=== PATIENT | male | born 1970 | race Caucasian/White ===

== ENCOUNTER 2017-11-25 00:58 | Inpatient (IN) | payer OTHER ==
[~2017-11-25] VITALS: Ht 193 cm; Wt 109.7 kg
[2017-11-25 09:20] VITALS: BP 135/91
--- NOTE | 2017-11-25 09:20 | NUR ---
RECEIVED PT FROM TRANSPORT PERSONNEL, VIA GURNEY, AWAKE AND ALERT AND CAME FROM [facility]. PT WAS ASSISTED TO BED AND MADE COMFORTABLE. SIDE RAILS ARE UP AND BED IN LOW POSITION, SAFETY PRECAUTION ENFORCED. PT HAS AN IV LINE ON THE LEFT AC G.20. INTACT AND ON SALINE LOCK. VITAL SIGNS TAKEN AND IS STABLE. PT VERBALIZED A PAIN RATE OF 5/10. RESPIRATIONS EVEN AND NO OTHER UNTOWARD SIGN NOTED. WILL CONTINUE TO MONITOR PT.
--- NOTE | 2017-11-25 11:43 | NUR ---
PT WAS SEEN BY DR. BANEGAS AND INFORMED PT THAT HE WILL BE REFERRED TO ANOTHER MD WHO WILL DO SURGERY, PT VERBALIZED UNDERSTANDING.
[2017-11-25] MEDS ORDERED: DEXT 5% / NACL 0.45% 1,000 ML IV SCH (11:48)
[2017-11-25] MEDS ORDERED: ACETAMINOPHEN 325 MG TAB PO PRN (11:50)
[2017-11-25] MEDS ORDERED: MORPHINE SULFATE 4 MG/ML SYR IVP PRN (11:50)
[2017-11-25] MEDS ORDERED: ONDANSETRON 4 MG/2 ML VIAL IVP PRN (11:50)
[2017-11-25] MEDS ORDERED: HYDROcodone/APAP 5/325 MG 1 TAB TAB PO PRN (11:50)
[2017-11-25 12:00] VITALS: BP 139/85
--- NOTE | 2017-11-25 12:45 | NUR ---
DR. BURGOS CAME TO THE PT'S ROOM AND SPOKE TO THE PT, PT RESPONDED APPROPRIATELY.
[2017-11-25] MEDS ORDERED: PIPER/TAZO 3.375GM/D5W PREMIX 50 ML IV SCH (13:00)
[2017-11-25 13:47] LABS: BASOPHILS # (AUTO) 0.1 K/uL (0.00-0.22); BASOPHILS % (AUTO) 0.3 % (0.0-2.0); EOSINOPHILS # (AUTO) 0.1 K/uL (0-0.4); EOSINOPHILS % (AUTO) 0.5 % (0.0-4.0); HEMATOCRIT 44.2 % (36-52); HEMOGLOBIN 14.9 g/dL (12.0-18.0); LYMPHOCYTES # (AUTO) 1.7 K/uL (2.0-11.5); LYMPHOCYTES % (AUTO) 8.7 % (20.5-51.1); MEAN CORPUSCULAR HEMOGLOBIN 30 pg (27-31); MEAN CORPUSCULAR HGB CONC 34 g/dL (33-37); MEAN CORPUSCULAR VOLUME 88.1 fL (80-94); MONOCYTES # (AUTO) 1.5 K/uL (0.8-1.0); MONOCYTES % (AUTO) 7.5 % (1.7-9.3); NEUTROPHILS # (AUTO) 16.1 K/uL (1.8-7.7); PLATELET COUNT (AUTO) 226 K/uL (140-450); RED BLOOD CELL COUNT(AUTO) 5.02 MIL/uL (4.20-6.10); RED CELL DISTRIBUTION WIDTH 13.9 % (11.6-13.7); WHITE BLOOD COUNT (AUTO) 19.4 K/uL (4.8-10.8)
[2017-11-25] MEDS ORDERED: OXcarbazepine 150 MG TAB PO SCH (14:00)
[2017-11-25 14:07] LABS: ALBUMIN 2.9 g/dL (3.4-5.0); ANION GAP 11.6 (8-16); CARBON DIOXIDE 26.5 mmol/L (21-32); CREATININE 0.7 mg/dL (0.7-1.3); POTASSIUM 4.1 mmol/L (3.5-5.1); TOTAL BILIRUBIN 1.6 mg/dL (0.0-1.0)
[2017-11-25 16:00] VITALS: BP 136/83
--- NOTE | 2017-11-25 18:37 | NUR ---
PT VERBALIZED AN ABDOMINAL PAIN RATE OF 6/10, MEDICATED PT AND PT TOLERATED IT. WILL RE-ASSESS PAIN.
--- NOTE | 2017-11-25 18:55 | NUR ---
PT AGGITATED AND UPSET WALKING AROUND IN HALLWAY, DEMANDING TO LET HIM GO HOME, PT IS MAD THAT SURGERY IS NOT DONE YET, PT WAS EXPLAINED THAT SURGERY IS SCHEDULED FOR MONDAY MORNING WITH DR BURGOS, PT NOT HAPPY, DEMANDING TO GET IV REMOVED AND TELE MONITOR REMOVED SO HE CAN LEAVE, PT CALLED HIS FATHER TO PICK HIM UP TO GO HOME, PT EXPLAINED OF RISKS FOR GOING HOME AMA, PT VERBALIZED FULL UNDERSTANDING, AMA FORM SIGNED, IV DC'D, CATH TIP INTACT, BLEEDING CONTROLLED, PT WALKED OUT TO FRONT LOBBY WITH STEADY GAIT.
--- NOTE | 2017-11-25 19:35 | NUR ---
DR GUERIN COVERING FOR DR BANEGAS PAGED AND CALLED BACK, DR GUERIN NOTIFIED THAT PT HAD LEFT AMA BECAUSE HE DIDNOT WANT TO WAIT UNTIL MONDAY FOR SURGERY.
[2017-11-25] MEDS ORDERED: OLANZapine 5 MG TAB PO SCH (21:00)
[2017-11-26] MEDS ORDERED: OXcarbazepine 150 MG TAB PO SCH (09:00)
== END 2017-11-25 19:15 | disposition left against medical advice (07) | DRG 872 ==
LOC: MMU 09:20
PROVIDERS: ADMIT Internal Medicine; ATTEND Internal Medicine
DX: A41.9 Sepsis, unspecified organism (principal); K80.00 Calculus of gallbladder with acute cholecystitis without obstruction; N17.9 Acute kidney failure, unspecified; E86.0 Dehydration; F25.9 Schizoaffective disorder, unspecified; F17.210 Nicotine dependence, cigarettes, uncomplicated; Z53.21 Procedure and treatment not carried out due to patient leaving prior to being seen by health care provider; Z88.8 Allergy status to other drugs, medicaments and biological substances
CPT/HCPCS: 36415; 71045; 74150; 80053; 83690; 85025; 86886; 86900; 86901; 87081; 93005; J2543; J7030